=== PATIENT | male | born 1950 | race Caucasian/White ===

== ENCOUNTER 2023-07-14 03:48 | Emergency (ER) | payer MEDICARE, BC ==
[2023-07-14 04:01] LABS: BASOPHILS ABSOLUTE AUTO 0.04 K/uL (0.00-0.20); BASOPHILS PERCENT AUTO 0.4 % (0.0-1.0); EOSINOPHILS ABSOLUTE AUTO 0.42 K/uL (0.00-0.45); HEMATOCRIT 42.1 % (42.0-52.0); HEMOGLOBIN 15.2 g/dL (14.0-18.0); IMMATURE GRAN ABSOLUTE AUTO 0.04 K/uL (0.00-0.05); IMMATURE GRAN PERCENT AUTO 0.4 % (0.0-0.4); LYMPHOCYTES ABSOLUTE AUTO 2.12 K/uL (1.00-4.80); LYMPHOCYTES PERCENT AUTO 20.3 % (24.0-44.0); MEAN CORPUSCULAR HEMOGLOBIN 31.4 pg (28.0-32.0); MEAN CORPUSCULAR HGB CONC 36.1 g/dL (32.0-36.0); MEAN PLATELET VOLUME 9.1 fL (9.4-12.4); MONOCYTES ABSOLUTE AUTO 1.31 K/uL (0.00-0.80); MONOCYTES PERCENT AUTO 12.5 % (0.0-8.0); NEUTROPHILS ABSOLUTE AUTO 6.51 K/uL (1.80-7.70); NEUTROPHILS PERCENT AUTO 62.4 % (41.0-71.0); PLATELET COUNT,PLT 220 K/uL (150-400); RED BLOOD CELL COUNT 4.84 M/uL (4.52-5.90); WHITE BLOOD CELL COUNT,WBC 10.44 K/uL (3.9-11.3)
[2023-07-14] MEDS: LORazepam 2 MG/ML SDV ONE (04:05)
[2023-07-14] MEDS: Ondansetron 4 MG/2 ML SDV ONE (04:05)
[2023-07-14] MEDS: Sodium Chloride 0.9% 2.5 ML Syringe FLUSH PRN (04:09)
[2023-07-14] MEDS: Ondansetron 4 MG/2 ML SDV IVPUSH ONE (04:09)
[2023-07-14] MEDS: Sodium Chloride 0.9% 10 ML Syringe FLUSH PRN (04:09)
[2023-07-14] MEDS: Sodium Chloride 0.9% 1,000 ML IV ONE (04:10)
[2023-07-14 04:12] LABS: INR 1.01 (0.86-1.11)
[2023-07-14] MEDS: Iopamidol 755 MG/ML 500 ML Multipack Bottle IVPUSH ONE (04:16)
[2023-07-14 04:28] LABS: A/G RATIO 0.8 (0.9-1.6); ALANINE AMINOTRANSFERASE,ALT 35 IU/L (14-63); ALBUMIN 2.9 g/dL (3.4-5.0); ALKALINE PHOSPHATASE 121 U/L (46-116); ASPARTATE AMNIOTRANSFERASE,AST 28 IU/L (15-37); BILIRUBIN TOTAL 0.9 mg/dL (0.2-1.0); BLOOD UREA NITROGEN,BUN 10 mg/dL (7.0-18.0); CALCIUM 8.5 mg/dL (8.5-10.1); CARBON DIOXIDE,CO2 25.3 mmol/L (21.0-32.0); CHLORIDE,CL 98 mmol/L (98-107); GLUCOSE RANDOM 140 mg/dL (74-106); POTASSIUM,K 3.8 mmol/L (3.5-5.1); PROTEIN TOTAL,TP 6.6 g/dL (6.4-8.2); SODIUM,NA 135 mmol/L (136-148)
[2023-07-14] MEDS: LORazepam 2 MG/ML SDV IVPUSH ONE (04:29)
[2023-07-14] MEDS: Ampicillin/Sulbactam Na 3 GM in Sodium Chloride 0.9% 100 ML IV ONE (04:41)
[2023-07-14 04:47] LABS: ESTIMATED GFR 80 mL/min (>60)
[2023-07-14] MEDS: Aspirin 81 MG Tab.Chew PO ONE (04:55)
[2023-07-14] MEDS: dimenhyDRINATE 50 MG Tab PO ONE (07:14)
[2023-07-14 07:18] VITALS: BP 152/78; PULSE 57
== END 2023-07-14 07:19 ==
LOC: MW.ED 03:48
DX: J32.4 Chronic pansinusitis (principal); R03.0 Elevated blood-pressure reading, without diagnosis of hypertension; H65.92 Unspecified nonsuppurative otitis media, left ear; H72.92 Unspecified perforation of tympanic membrane, left ear; R42 Dizziness and giddiness; Z91.013 Allergy to seafood
CPT/HCPCS: 36415; 70450; 70496; 70498; 80053; 82947; 83735; 84484; 85025; 85610; 85730; 96361; 96365; 96375; 99285; A9270; J0295; J2405; J3490; J7030; Q9967; 93010; 99291